=== PATIENT | female | born 1995 | race Caucasian/White ===

== ENCOUNTER 2017-06-13 09:43 | Emergency (ER) | payer OTHER ==
[2017-06-13 11:04] LABS: BILIRUBIN,URINE NEGATIVE (NEG); CLARITY,URINE CLOUDY; COLOR,URINE YELLOW; GLUCOSE,URINE NEGATIVE (NEG); NITRITE,URINE NEGATIVE (NEG); PH,URINE 5.5; PROTEIN,URINE NEGATIVE (NEG-TRACE); UROBILINOGEN,URINE 0.2 mg/dL (0.2 mg/dL)
[2017-06-13 11:12] LABS: ADD MAN DIFF? NO
[2017-06-13 11:20] LABS: SQUAMOUS EPITHELIAL CELL,UR MANY /LPF
[2017-06-13 11:21] LABS: BACTERIA,URINE MANY /HPF (0-FEW); RBC,URINE OCC /HPF (0-2); WBC,URINE 20-40 /HPF (0-4)
[2017-06-13 11:22] LABS: BASO % 0 % (0-3); EOS # 0.2 x10^3/uL (0.0-0.7); EOS % 1 % (0-3); HEMATOCRIT 32.2 % (36.0-47.0); HEMOGLOBIN 10.7 g/dL (12.0-15.5); LYMPH # 2.9 x10^3/uL (1.0-4.8); LYMPH % 18 % (24-48); MEAN CORPUSCULAR HEMOGLOBIN 27 pg (25-35); MEAN CORPUSCULAR HGB CONC 33 g/dL (31-37); MEAN CORPUSCULAR VOLUME 81 fL (79-100); MONO # 0.8 x10^3/uL (0.0-1.1); MONO % 5 % (0-9); NEUT # 11.8 x10^3uL (1.8-7.7); NEUT % 75 % (31-73); PLATELET COUNT 456 x10^3/uL (140-400); RED BLOOD COUNT 3.99 x10^6/uL (3.50-5.40); RED CELL DISTRIBUTION WIDTH 15.5 % (11.5-14.5); WHITE BLOOD COUNT 15.6 x10^3/uL (4.0-11.0)
[2017-06-13 11:29] LABS: ANION GAP 14 (6-14); BLOOD UREA NITROGEN 13 mg/dL (7-20); BUN/CREATININE RATIO 22 (6-20); CARBON DIOXIDE 23 mmol/L (21-32); CHLORIDE 104 mmol/L (98-107); CREATININE 0.6 mg/dL (0.6-1.0); GFR 126.2; GLUCOSE 123 mg/dL (70-99); POTASSIUM 3.8 mmol/L (3.5-5.1); SODIUM 141 mmol/L (136-145)
[2017-06-13 11:34] LABS: ALBUMIN 3.1 g/dL (3.4-5.0); ALBUMIN/GLOBULIN RATIO 0.7 (1.0-1.7); ALK PHOS 83 U/L (46-116); ALT (SGPT) 19 U/L (14-59); AST (SGOT) 24 U/L (15-37); LIPASE 157 U/L (73-393); TOTAL BILIRUBIN 0.1 mg/dL (0.2-1.0); TOTAL PROTEIN 7.5 g/dL (6.4-8.2)
[2017-06-13] MEDS: ACETAMINOPHEN 500 MG TABLET PO (11:55)
[2017-06-13] MEDS: IV NORMAL SALINE 1000ML BAG 1,000 ML IV (11:56)
[2017-06-13] MEDS: ONDANSETRON PF 4 MG/2 ML VIAL. IV (11:56)
== END 2017-06-13 13:32 | disposition home or self-care (01) ==
LOC: ER 09:43
DX: O23.02 Infections of kidney in pregnancy, second trimester (principal); O21.9 Vomiting of pregnancy, unspecified; Z3A.19 19 weeks gestation of pregnancy
CPT/HCPCS: 36415; 76805; 80053; 81001; 83690; 85025; 87086; 96361; 96365; 96375; 99285-25; J0690; J2405; J7030

== ENCOUNTER 2018-06-08 05:01 | Emergency (ER) | payer OTHER ==
[~2018-06-08] VITALS: Ht 162.6 cm; Wt 46.7 kg
[~2018-06-08 05:01] MED LIST: CEPH500T PO; ONDA4TAB10 SL
[2018-06-08 05:10] VITALS: BP 107/67
[2018-06-08 05:45] LABS: BILIRUBIN,URINE NEGATIVE (NEG); CLARITY,URINE CLOUDY; COLOR,URINE YELLOW; NITRITE,URINE NEGATIVE (NEG); PH,URINE 6.5; PROTEIN,URINE >=300 mg/dL (NEG-TRACE); UROBILINOGEN,URINE 0.2 mg/dL (0.2 mg/dL)
--- NOTE | 2018-06-08 05:50 | PHYS DOC ---
Past Medical History Past Medical History: Seizure Additional Past Medical Histor: ovarian cysts Past Surgical History: No Surgical History Alcohol Use: None Drug Use: None Adult General Chief Complaint Chief Complaint: PAIN ON URINATION HPI HPI Patient is a 23 year old female presents with intermittent right flank pain, urinary frequency or urgency and dysuria. Symptom onset was several hours prior to arrival. No nausea or vomiting. Patient does report sweats. History of frequent urinary tract infection pyelonephritis. Patient states symptoms feel similar. Denies history of kidney stones. Patient is currently on day #4 of her menstrual period. [] Review of Systems Review of Systems Review symptoms as per history of present illness. All other review symptoms are negative. All other systems were reviewed and found to be within normal limits, except as documented in this note. Current Medications Current Medications Current Medications Medications (Trade) Dose Ordered Sig/Evonne Start Time Stop Time Status Last Admin Dose Admin Levofloxacin (Levaquin) 500 mg 1X ONCE 06/08/18 06:30 06/08/18 06:31 06/08/18 05:56 500 MG Phenazopyridine HCl (Pyridium) 200 mg 1X ONCE 06/08/18 06:30 06/08/18 06:31 06/08/18 05:57 200 MG Allergies Allergies Allergies Coded Allergies Type Severity Reaction Last Updated Verified No Known Drug Allergies 12/19/14 No Physical Exam Physical Exam Constitutional: Well developed, well nourished, P is moderately uncomfortable.. [] HENT: Normocephalic, atraumatic, bilateral external ears normal, oropharynx moist, no oral exudates, nose normal. [] Eyes: PERRLA, EOMI, conjunctiva normal. [] Neck: Normal range of motion. [] Abdomen: Bowel sounds normal, soft, lower quadrant pain, tenderness, negative McBurney sign.. [] Skin: Warm, dry, no erythema, no rash. [] Back: No tenderness, R CVA tenderness. [] Extremities: No tenderness, no edema. [] Neurologic: Alert and oriented, normal motor function, normal sensory function, no focal deficits noted. [] Psychologic: Affect normal, judgement normal, mood normal. [] Current Patient Data Vital Signs Vital Signs Date Time Temp Pulse Resp B/P (MAP) Pulse Ox O2 Delivery O2 Flow Rate FiO2 06/08/18 05:10 98.5 69 14 107/67 (80) 100 Room Air 98.5 Lab Values Laboratory Tests Test 06/08/18 05:36 POC Urine HCG, Qualitative Hcg negative (Negative) EKG EKG [] Radiology/Procedures Radiology/Procedures [] Course & Med Decision Making Course & Med Decision Making Pertinent Labs and Imaging studies reviewed. (See chart for details) [Symptoms consistent with early pyelonephritis. Patient declines urine sample despite being on menstrual period. Urine drug use test is negative. First dose of any products given. Will continue. Treatment and supportive care with close PCP follow-up. Return precautions reviewed. Patient verbalizes understanding and agreement discharge instructions prior to departure.] Dragon Disclaimer Dragon Disclaimer This electronic medical record was generated, in whole or in part, using a voice recognition dictation system. Departure Departure Impression: Primary Impression: Pyelonephritis Disposition: HOME, SELF-CARE Condition: GOOD Referrals: HOLLIE CHIU MD (PCP) Patient Instructions: Urinary Tract Infection, [id number] Additional Instructions: Your evaluated in the emergency department for right flank, right-sided pelvic pain. Scripts Phenazopyridine Hcl (PYRIDIUM) 100 Mg Tablet 100 MG PO TID for 2 Days, #6 TAB Prov: RADHA MYRICK DO 06/08/18 Ondansetron Hcl (ZOFRAN) 4 Mg Tablet 1 TAB PO Q6HRS, #10 TAB 0 Refills Prov: RADHA MYRICK DO 06/08/18 Levofloxacin (LEVAQUIN) 500 Mg Tablet 1 TAB PO DAILY, #5 TAB Prov: RADHA MYRICK DO 06/08/18 RADHA MYRICK DO Jun 08, 2018 05:50
[2018-06-08] MEDS ORDERED: LEVO500T59 PO (05:53)
[2018-06-08] MEDS ORDERED: ONDA4TAB7 PO (05:53)
[2018-06-08] MEDS ORDERED: PHEN100T82 PO (05:54)
[2018-06-08] MEDS: PHENAZOPYRIDINE 200 MG TABLET. PO ONE (05:57)
[2018-06-08 06:14] LABS: BACTERIA,URINE MODERATE /HPF (0-FEW); RBC,URINE 20-40 /HPF (0-2); WBC,URINE TNTC /HPF (0-4)
== END 2018-06-08 06:18 | disposition home or self-care (01) ==
LOC: ER 05:01
DX: N12 Tubulo-interstitial nephritis, not specified as acute or chronic (principal); R10.31 Right lower quadrant pain
CPT/HCPCS: 81001; 81025; 87086; 99283

== ENCOUNTER 2020-01-04 14:07 | Emergency (ER) | payer OTHER ==
[~2020-01-04] VITALS: Ht 162.6 cm; Wt 38.6 kg
[~2020-01-04 14:07] MED LIST changes: +LEVO500T59 PO; +ONDA4TAB7 PO; +PHEN100T82 PO
[2020-01-04 14:28] VITALS: BP 93/66
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
[2020-01-04] MEDS ORDERED: BACITRACIN TOPICAL OINT PACKET. TP ONE (15:00)
[2020-01-04] MEDS ORDERED: DIPH,PERTUSS(ACELL),TET VAC/PF 0.5 ML SYRINGE. VAX IM ONE (15:00)
[2020-01-04] MEDS ORDERED: HYDROcodone/APAP 5/325MG 1 TAB TABLET PO ONE (15:00)
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
[2020-01-04] MEDS ORDERED: HYDR-3164 PO (15:24)
== END 2020-01-04 15:32 | disposition home or self-care (01) ==
LOC: ER 14:07
DX: G89.11 Acute pain due to trauma (principal); M79.632 Pain in left forearm; M25.532 Pain in left wrist; M79.642 Pain in left hand; N15.9 Renal tubulo-interstitial disease, unspecified; Z98.890 Other specified postprocedural states; V89.2XXA Person injured in unspecified motor-vehicle accident, traffic, initial encounter; Y93.89 Activity, other specified; Y92.413 State road as the place of occurrence of the external cause; Y99.8 Other external cause status
CPT/HCPCS: 29125; 73090; 73110; 73130; 99284

== ENCOUNTER 2021-06-02 21:34 | Emergency (ER) | payer OTHER ==
[~2021-06-02] VITALS: Ht 160 cm; Wt 52.0 kg
[~2021-06-02 21:34] MED LIST changes: +HYDR-3164 PO
[2021-06-02 21:45] VITALS: BP 109/75
--- NOTE | 2021-06-02 22:10 | PHYS DOC ---
Past Medical History Past Medical History: Kidney Infection Additional Past Medical Histor: ovarian cysts Past Surgical History: Smoking Status: Never Smoker Alcohol Use: None Drug Use: None General Adult EDM: Chief Complaint: FINGER INJURY HPI: HPI: Patient is a 26 year old female complaining of right thumb pain x 48 hours. Patient states that she hurt her thumb at work after hyperextending it, describ es the pain as sharp 6/10 pain, she was taking 500 mg tylenol q8hrs which provided some relief. Reports movement makes the pain worse and no associated symptoms. Denies . Review of Systems: Review of Systems: Constitutional: Denies fever or chills GI: Denies abdominal pain, nausea, or vomiting /ROTARY HELPER: Denies dysuria or Musculoskeletal: Reports right thumb pain Integument: Denies rash or skin lesions Neurologic: Denies headache, focal weakness or sensory changes Complete systems were reviewed and found to be within normal limits, except as documented in this note. Heart Score: C/O Chest Pain: N/A Current Medications: Current Medications Medications (Trade) Dose Ordered Sig/Evonne Start Time Stop Time Status Last Admin Dose Admin Ibuprofen (Motrin) 400 mg 1X ONCE 06/02/21 22:15 06/02/21 22:16 Allergies: Allergies: Allergies Coded Allergies Type Severity Reaction Last Updated Verified No Known Drug Allergies 12/19/14 No Physical Exam: PE: Constitutional: Well developed, well nourished, no acute distress, non-toxic appearance HENT: Normocephalic, atraumatic Eyes: Conjunctiva normal, no discharge Neck: Normal range of motion, supple Lungs & Thorax: No respiratory distress, equal chest rise and fall Abdomen: Soft, no tenderness Skin: Warm, dry, no erythema, no rash Extremities: Tenderness to palpation of R thumb primarily at MCP, limited range of motion due to pain, cap refill and sensation intact, right radial pulse +2 Neurologic: Alert and oriented X 3, no focal deficits noted Psychologic: Affect normal, judgment normal Current Patient Data: Vital Signs: Vital Signs Date Time Temp Pulse Resp B/P (MAP) Pulse Ox O2 Delivery O2 Flow Rate FiO2 06/02/21 21:45 98.0 80 18 109/75 (86) 98 Room Air 98.0 EKG: EKG: [] Radiology/Procedures: Radiology/Procedures: PROCEDURE: HAND RIGHT 3V Right hand 3 views. HISTORY: Pain to base of right thumb 3 views were taken of the right hand. There is not evidence of an acute fracture or osseous abnormality. IMPRESSION: 1. Negative right hand. Electronically signed by: Ramez Burnett MD (06/02/2021 11:05 PM) [facility] Course & Med Decision Making: Course & Med Decision Making Pertinent Imaging studies reviewed. (See chart for details) Patient presented with a CC of right thumb pain after hurting her thumb at work. Patient had splinted her thumb and wanted to make sure that it was healing correctly. Concern for hyperextention or gamekeepers thumb. Pain addressed. XR without acute fracture or dislocation. Splint reapplied. Patient stable for discharge with outpatient follow-up with PCP. Discussed findings and plan with patient, who acknowledges understanding and agreement. Serjio Disclaimer: Serjio Disclaimer: This electronic medical record was generated, in whole or in part, using a voice recognition dictation system. Splinting Splinting : Location: right thumb Pre-Made Type: metal (aluminum finger splint) Pre-Proc Neuro Vasc Exam: normal Post-Proc Neuro Vasc Exam: normal, unchanged from pre-exam Departure Departure Impression: Primary Impression: Sprain of right thumb Qualified Codes: S63.641A - Sprain of metacarpophalangeal joint of right thumb, initial encounter Disposition: HOME / SELF CARE / HOMELESS Condition: STABLE Referrals: HOLLIE CHIU MD (PCP) Patient Instructions: Finger Sprain, [id number], Gamekeeper's, Skier's Thumb Additional Instructions: Ice area of discomfort 20 minutes on then leave off her next 20 minutes. Repeat several times daily for the next 2 days. Take datq-eya-oykxeku ibuprofen and or Tylenol for pain discomfort. Maintain thumb in a splint for the next several days. Follow-up with Workmen's Comp. as needed. JOAQUÍN VALDIVIA DO Jun 02, 2021 22:10
[2021-06-02] MEDS: IBUPROFEN 400 MG TABLET. PO ONE (22:39)
--- NOTE | 2021-06-02 23:07 | RAD ---
Right hand 3 views. HISTORY: Pain to base of right thumb 3 views were taken of the right hand. There is not evidence of an acute fracture or osseous abnormali ty. IMPRESSION: 1. Negative right hand. Electronically signed by: Ramez Burnett MD (06/02/2021 11:05 PM) [facility]
== END 2021-06-02 23:15 | disposition home or self-care (01) ==
LOC: ER 21:34
DX: S63.641A Sprain of metacarpophalangeal joint of right thumb, initial encounter (principal); X50.9XXA Other and unspecified overexertion or strenuous movements or postures, initial encounter; Y93.89 Activity, other specified; Y92.69 Other specified industrial and construction area as the place of occurrence of the external cause; Y99.0 Civilian activity done for income or pay
CPT/HCPCS: 29125; 73130; 99283